=== PATIENT | female | born 1955 | race Caucasian/White ===

== ENCOUNTER → 2016-07-18 | Outpatient (CLI) | payer BC ==
[~2016-07-18] VITALS: Ht 165.1 cm; Wt 110.2 kg
[~2016-07-18] MED LIST: ALBU17IN2 INH; AMLO5TAB2 PO; CALC600T10 PO; ESTR1MIS PV; FLUT1LOT; HUMI40KI SC; LIDOCAINE 2% INJ 100 MG/5 ML SDV (FOR ANES.) As Ordered ONE; METH2.5TA PO; MULT1TAB10 PO; NS 1,000 ML IV SCH; PANT40TA2 PO; PROPOFOL 200 MG/20 ML VIAL As Ordered ONE; VITA200016 PO
--- NOTE | 2016-07-18 07:46 | ROOR ---
Patient Name: Falguni Marlow Procedure Date: 07/18/2016 7:29 AM Date of : 1955 Age: 60 Room: [facility] Gender: Female Note Status: Finalized Procedure: Colonoscopy Indications: High risk colon cancer surveillance: Personal history of colonic polyps, Last colonoscopy: May 2013 Providers: Evan TORRES MD Referring MD: DOMINICK LERMA MD Requesting Provider: Medicines: Monitored Anesthesia Care Complications: No immediate complications. Procedure: Pre-Anesthesia Assessment: - The heart rate, respiratory rate, oxygen saturations, blood pressure, adequacy of pulmonary ventilation, and response to care were monitored throughout the procedure. The Colonoscope was introduced through the anus and advanced to the cecum, identified by appendiceal orifice and ileocecal valve. The colonoscopy was performed without difficulty. The patient tolerated the procedure well. The quality of the bowel preparation was good. Findings: The perianal and digital rectal examinations were normal. (Exam: Complete, Prep: Good or Excellent.) A 4 mm polyp was found in the hepatic flexure. The polyp was sessile. The polyp was removed with a cold snare. Resection and retrieval were complete. The exam was otherwise without abnormality on direct and retroflexion views. Impression: - One 4 mm polyp at the hepatic flexure, removed with a cold snare. Resected and retrieved. - The examination was otherwise normal on direct and retroflexion views. Recommendation: - Repeat colonoscopy in 5 years for surveillance. Evan Torres MD Evan TORRES MD 07/18/2016 7:45:51 AM This report has been signed electronically. Number of Addenda: 0 Note Initiated On: 07/18/2016 7:29 AM Estimated Blood Loss: Estimated blood loss: none.
[2016-07-18 08:20] VITALS: BP 133/61
== END ==
LOC: M OPP 06:41
PROVIDERS: ATTEND Internal Medicine Gastroenterology
DX: Z12.11 Encounter for screening for malignant neoplasm of colon (principal); Z86.010 Personal history of colon polyps; D12.3 Benign neoplasm of transverse colon; I10 Essential (primary) hypertension; K21.9 Gastro-esophageal reflux disease without esophagitis; M19.90 Unspecified osteoarthritis, unspecified site; J45.909 Unspecified asthma, uncomplicated; Z79.899 Other long term (current) drug therapy

== ENCOUNTER → 2016-08-20 | Outpatient (REF) | payer BC ==
[~2016-08-20] MED LIST changes: -LIDOCAINE 2% INJ 100 MG/5 ML SDV (FOR ANES.) As Ordered ONE; -NS 1,000 ML IV SCH; -PROPOFOL 200 MG/20 ML VIAL As Ordered ONE
[2016-08-20 13:10] LABS: ALBUMIN 3.9 GM/DL (3.2-5.2); ALT/SGPT 27 U/L (12-78); AST/SGOT 18 U/L (15-37); CREATININE FOR GFR 0.89 MG/DL (0.55-1.02); GLOMERULAR FILTRATION RATE > 60.0 (>45)
[2016-08-20 13:28] LABS: BASO % 0.6 % (0.0-1.0); EOS # 0.3 K/mm3 (0.0-0.50); LYMPH # 1.8 K/mm3 (1.5-4.5); LYMPH % 24.3 % (24.0-44.0); MEAN CORPUSCULAR HEMOGLOBIN 30.1 pg (27.0-33.0); MEAN CORPUSCULAR HGB CONC 33.1 g/dl (32.0-36.5); MEAN CORPUSCULAR VOLUME 90.9 fl (80.0-96.0); MONO # 0.4 K/mm3 (0.0-0.8); MONO % 5.6 % (0.0-5.0); NEUTROPHILS # 4.2 K/mm3 (1.8-7.7); RED CELL DISTRIBUTION WIDTH 13.5 % (11.5-14.5); WHITE BLOOD COUNT 6.7 K/mm3 (4.0-10.0)
== END ==
LOC: M LABDRAW1 12:20
PROVIDERS: ATTEND Internal Medicine Rheumatology
DX: Z51.81 Encounter for therapeutic drug level monitoring (principal); Z79.899 Other long term (current) drug therapy

== ENCOUNTER → 2016-08-20 | Outpatient (REF) | payer BC ==
[2016-08-20 13:18] LABS: ALBUMIN 3.9 GM/DL (3.2-5.2); ALBUMIN/GLOBULIN RATIO 1.26 (1.00-1.93); ALKALINE PHOSPHATASE 96 U/L (45-117); ALT/SGPT 30 U/L (12-78); ANION GAP 6 MEQ/L (8-16); AST/SGOT 18 U/L (15-37); BILIRUBIN,TOTAL 0.5 MG/DL (0.2-1.0); BLOOD UREA NITROGEN 14 MG/DL (7-18); CALCIUM LEVEL 9.5 MG/DL (8.8-10.2); CARBON DIOXIDE LEVEL 30 MEQ/L (21-32); CHLORIDE LEVEL 105 MEQ/L (98-107); CHOLESTEROL LEVEL 204 MG/DL (<200); CREATININE FOR GFR 0.88 MG/DL (0.55-1.02); GLOMERULAR FILTRATION RATE > 60.0 (>45); GLUCOSE, FASTING 101 MG/DL (80-110); POTASSIUM SERUM 4.4 MEQ/L (3.5-5.1); SODIUM LEVEL 141 MEQ/L (136-145); TRIGLYCERIDES LEVEL 120 MG/DL (<150)
== END ==
LOC: M LABDRAW1 12:21
PROVIDERS: ATTEND Emergency Medicine
DX: I10 Essential (primary) hypertension (principal); E78.2 Mixed hyperlipidemia

== ENCOUNTER → 2017-01-16 | Outpatient (REF) | payer BC ==
[~2017-01-16] MED LIST changes: -CALC600T10 PO; +CALC600T31 PO
[2017-01-16 13:58] LABS: BASO % 0.8 % (0.0-1.0); EOS # 0.3 K/mm3 (0.0-0.50); LYMPH % 26.8 % (24.0-44.0); MEAN CORPUSCULAR HEMOGLOBIN 31.5 pg (27.0-33.0); MEAN CORPUSCULAR HGB CONC 34.4 g/dl (32.0-36.5); MEAN CORPUSCULAR VOLUME 91.4 fl (80.0-96.0); MONO # 0.3 K/mm3 (0.0-0.8); MONO % 4.9 % (0.0-5.0); NEUTROPHILS # 4.1 K/mm3 (1.8-7.7); NEUTROPHILS % 60.5 % (36.0-66.0); RED CELL DISTRIBUTION WIDTH 13.6 % (11.5-14.5); WHITE BLOOD COUNT 6.8 K/mm3 (4.0-10.0)
[2017-01-16 14:35] LABS: ALBUMIN 3.7 GM/DL (3.2-5.2); ALT/SGPT 51 U/L (12-78); AST/SGOT 32 U/L (15-37); CREATININE FOR GFR 0.79 MG/DL (0.55-1.02); GLOMERULAR FILTRATION RATE > 60.0 (>45)
== END ==
LOC: M LABDRAW1 08:01
PROVIDERS: ATTEND Internal Medicine Rheumatology
DX: Z51.81 Encounter for therapeutic drug level monitoring (principal); Z79.899 Other long term (current) drug therapy; M05.79 Rheumatoid arthritis with rheumatoid factor of multiple sites without organ or systems involvement

== ENCOUNTER → 2017-01-16 | Outpatient (REF) | payer BC ==
[2017-01-16 14:34] LABS: ALBUMIN 3.8 GM/DL (3.2-5.2); ALBUMIN/GLOBULIN RATIO 1.15 (1.00-1.93); ALKALINE PHOSPHATASE 91 U/L (45-117); ALT/SGPT 49 U/L (12-78); ANION GAP 8 MEQ/L (8-16); AST/SGOT 33 U/L (15-37); BILIRUBIN,TOTAL 0.5 MG/DL (0.2-1.0); BLOOD UREA NITROGEN 13 MG/DL (7-18); CALCIUM LEVEL 8.9 MG/DL (8.8-10.2); CARBON DIOXIDE LEVEL 29 MEQ/L (21-32); CHLORIDE LEVEL 107 MEQ/L (98-107); CHOLESTEROL LEVEL 196 MG/DL (<200); CREATININE FOR GFR 0.79 MG/DL (0.55-1.02); GLOMERULAR FILTRATION RATE > 60.0 (>45); GLUCOSE, FASTING 91 MG/DL (80-110); POTASSIUM SERUM 4.4 MEQ/L (3.5-5.1); SODIUM LEVEL 144 MEQ/L (136-145); TOTAL PROTEIN 7.1 GM/DL (6.4-8.2); TRIGLYCERIDES LEVEL 149 MG/DL (<150)
== END ==
LOC: M LABDRAW1 08:01
PROVIDERS: ATTEND Emergency Medicine
DX: I10 Essential (primary) hypertension (principal); E78.2 Mixed hyperlipidemia

== ENCOUNTER → 2017-02-25 | Outpatient (CLI) | payer BC ==
--- NOTE | 2017-02-25 11:41 | REPMRS ---
Patient History The patient states she had a clinical breast exam in 03/03 Patient is postmenopausal and has history of other cancer at age 56. Family history of prostate cancer in father at age 50 or over. Took estrogen for 3 years. Taking unspecified hormones for 2 years. Digital Woman Screen Mammo: February 25, 2017 - Exam #: [id number] Bilateral CC and MLO view(s) were taken. Technologist: Shae Negron, Technologist Prior study comparison: December 13, 2015, digital woman screen mammo performed at [facility] [employer] [facility]. November 28, 2014, digital woman screen mammo performed at [facility] [employer] [facility]. November 09, 2013, digital woman screen mammo performed at [facility] [employer] [facility]. FINDINGS: There are scattered fibroglandular densities. There has been no change in the appearance of the mammogram from the prior studies. There is a mild amount of scattered fibroglandular density which is fairly symmetric. There is no interval development of dominant mass, architectural distortion, or clustered microcalcification suggestive of malignancy. ASSESSMENT: BI-RADS/ACR category 1 mammogram. Negative. Recommendation Routine screening mammogram in 1 year (for women over age 40). This mammogram was interpreted with the aid of an FDA-approved computer-aided dectection system. Electronically Signed By: Naun Staples MD 02/25/17 [id number]
== END ==
LOC: M WHC 09:32
PROVIDERS: ATTEND Nurse Practitioner Women's Health
DX: Z12.31 Encounter for screening mammogram for malignant neoplasm of breast (principal)

== ENCOUNTER → 2017-09-07 | Outpatient (REF) | payer BC ==
[2017-09-07 11:04] LABS: ALBUMIN/GLOBULIN RATIO 1.18 (1.00-1.93); ALKALINE PHOSPHATASE 97 U/L (45-117); ALT/SGPT 40 U/L (12-78); ANION GAP 5 MEQ/L (8-16); AST/SGOT 28 U/L (7-37); BILIRUBIN,TOTAL 0.5 MG/DL (0.2-1.0); BLOOD UREA NITROGEN 16 MG/DL (7-18); CALCIUM LEVEL 9.2 MG/DL (8.8-10.2); CARBON DIOXIDE LEVEL 30 MEQ/L (21-32); CHLORIDE LEVEL 106 MEQ/L (98-107); CHOLESTEROL LEVEL 192 MG/DL (<200); CHOLESTEROL RISK RATIO 4.266 (<5); CREATININE FOR GFR 0.88 MG/DL (0.55-1.30); GLOMERULAR FILTRATION RATE > 60.0 (>45); GLUCOSE, FASTING 98 MG/DL (70-100); HDL CHOLESTEROL 45 MG/DL (>40); LDL CHOLESTEROL 121.2 MG/DL (<100); NON-HDL-C 147 MG/DL; POTASSIUM SERUM 4.4 MEQ/L (3.5-5.1); SODIUM LEVEL 141 MEQ/L (136-145); TOTAL PROTEIN 7.4 GM/DL (6.4-8.2); TRIGLYCERIDES LEVEL 129 MG/DL (<150)
== END ==
LOC: M LABDRAW1 08:13
DX: I10 Essential (primary) hypertension (principal); E78.2 Mixed hyperlipidemia
CPT/HCPCS: 80053

== ENCOUNTER → 2017-09-07 | Outpatient (REF) | payer BC ==
[2017-09-07 10:44] LABS: BASO # 0.1 10^3/uL (0.0-0.2); BASO % 0.8 % (0.0-1.0); EOS # 0.7 10^3/uL (0.0-0.50); EOS % 10.1 % (0.0-3.0); HEMATOCRIT 38.9 % (36.0-47.0); HEMOGLOBIN 13.2 g/dl (12.0-15.5); IMMATURE GRANULOCYTE % 0.3 % (0-3.0); LYMPH # 1.8 10^3/uL (1.5-4.5); LYMPH % 28.3 % (24.0-44.0); MEAN CORPUSCULAR HEMOGLOBIN 30.3 pg (27.0-33.0); MEAN CORPUSCULAR HGB CONC 33.9 g/dl (32.0-36.5); MEAN CORPUSCULAR VOLUME 89.2 fl (80.0-96.0); MONO # 0.5 10^3/uL (0.0-0.8); NEUTROPHILS # 3.4 10^3/uL (1.8-7.7); NEUTROPHILS % 53.5 % (36.0-66.0); PLATELET COUNT, AUTOMATED 287 10^3/uL (150-450); RED BLOOD COUNT 4.36 10^6/uL (4.00-5.40); RED CELL DISTRIBUTION WIDTH 13.4 % (11.5-14.5); WHITE BLOOD COUNT 6.4 10^3/uL (4.0-10.0)
[2017-09-07 11:01] LABS: ALT/SGPT 40 U/L (12-78); AST/SGOT 31 U/L (7-37); CREATININE FOR GFR 0.92 MG/DL (0.55-1.30); GLOMERULAR FILTRATION RATE > 60.0 (>45)
[2017-09-07 11:08] LABS: ERYTHROCYTE SEDIMENTATION RATE 24 mm/hr (0-30)
== END ==
LOC: M LABDRAW1 08:11
DX: M05.79 Rheumatoid arthritis with rheumatoid factor of multiple sites without organ or systems involvement (principal); Z79.899 Other long term (current) drug therapy
CPT/HCPCS: 85027

== ENCOUNTER → 2018-01-26 | Outpatient (REF) | payer BC ==
[2018-01-26 11:15] LABS: BASO # 0.1 10^3/uL (0.0-0.2); BASO % 0.9 % (0.0-1.0); EOS # 0.2 10^3/uL (0.0-0.50); EOS % 3.2 % (0.0-3.0); HEMATOCRIT 39.8 % (36.0-47.0); HEMOGLOBIN 13.1 g/dl (12.0-15.5); IMMATURE GRANULOCYTE % 0.3 % (0-3.0); LYMPH % 26.6 % (24.0-44.0); MEAN CORPUSCULAR HGB CONC 32.9 g/dl (32.0-36.5); MEAN CORPUSCULAR VOLUME 91.3 fl (80.0-96.0); MONO # 0.6 10^3/uL (0.0-0.8); NEUTROPHILS # 4.6 10^3/uL (1.8-7.7); PLATELET COUNT, AUTOMATED 288 10^3/uL (150-450); RED BLOOD COUNT 4.36 10^6/uL (4.00-5.40); RED CELL DISTRIBUTION WIDTH 13.5 % (11.5-14.5); WHITE BLOOD COUNT 7.5 10^3/uL (4.0-10.0)
[2018-01-26 11:41] LABS: ALBUMIN 3.7 GM/DL (3.2-5.2); ALT/SGPT 26 U/L (12-78); AST/SGOT 15 U/L (7-37); C REACTIVE PROTEIN QUANTITATIV 0.31 MG/DL (0.00-0.30); CREATININE FOR GFR 0.85 MG/DL (0.55-1.30); GLOMERULAR FILTRATION RATE > 60.0 (>45)
[2018-01-26 11:56] LABS: ERYTHROCYTE SEDIMENTATION RATE 27 mm/hr (0-30)
== END ==
LOC: M LABDRAW1 10:30
DX: Z79.899 Other long term (current) drug therapy (principal); Z51.81 Encounter for therapeutic drug level monitoring
CPT/HCPCS: 84460

== ENCOUNTER → 2018-05-26 | Outpatient (CLI) | payer BC ==
[~2018-05-26] MED LIST changes: -AMLO5TAB2 PO; +AMLO5TAB6 PO; +METH2.5T48 PO; -METH2.5TA PO; -PANT40TA2 PO; +PANT40TA3 PO
--- NOTE | 2018-05-26 12:25 | REPMRS ---
Patient History The patient states she had a clinical breast exam in 06/05 Patient is postmenopausal and has history of other cancer at age 56. Family history of prostate cancer at age 50 or over in father. Took estrogen for 3 years. Taking unspecified hormones for 3 years. Digital Woman Screen Mammo: May 26, 2018 - Exam #: [id number] Bilateral CC and MLO view(s) were taken. Technologist: Shae Negron, Technologist Prior study comparison: February 25, 2017, digital woman screen mammo performed at [facility] [employer] [facility]. December 13, 2015, digital woman screen mammo performed at [facility] [employer] [facility]. November 28, 2014, digital woman screen mammo performed at [facility] [employer] [facility]. FINDINGS: There are scattered fibroglandular densities. There has been no change in the appearance of the mammogram from the prior studies. There is a mild amount of scattered fibroglandular density which is fairly symmetric. There is no interval development of dominant mass, architectural distortion, or clustered microcalcification suggestive of malignancy. 3-D tomosynthesis shows no additional findings. Assessment: BI-RADS/ACR category 1 mammogram. Negative. Recommendation Routine screening mammogram of both breasts in 1 year (for women over age 40). This patient's Lifetime Breast Cancer RIsk is estimated at 5.6 %. This mammogram was interpreted with the aid of an FDA-approved computer-aided dectection system. Electronically Signed By: Naun Staples MD 05/26/18 [id number]
== END ==
LOC: M WHC 08:30
PROVIDERS: ATTEND Nurse Practitioner Women's Health
DX: Z12.31 Encounter for screening mammogram for malignant neoplasm of breast (principal); Z78.0 Asymptomatic menopausal state; Z85.9 Personal history of malignant neoplasm, unspecified; Z79.899 Other long term (current) drug therapy; R92.8 Other abnormal and inconclusive findings on diagnostic imaging of breast

== ENCOUNTER → 2018-05-26 | Outpatient (REF) | payer BC ==
[2018-05-26 12:40] LABS: BASO # 0.1 10^3/uL (0.0-0.2); BASO % 1.1 % (0.0-1.0); EOS # 0.6 10^3/uL (0.0-0.50); EOS % 6.9 % (0.0-3.0); HEMATOCRIT 39.4 % (36.0-47.0); HEMOGLOBIN 13.2 g/dl (12.0-15.5); LYMPH # 1.9 10^3/uL (1.5-4.5); LYMPH % 23.8 % (24.0-44.0); MEAN CORPUSCULAR HEMOGLOBIN 30.4 pg (27.0-33.0); MEAN CORPUSCULAR HGB CONC 33.5 g/dl (32.0-36.5); MEAN CORPUSCULAR VOLUME 90.8 fl (80.0-96.0); MONO # 0.6 10^3/uL (0.0-0.8); MONO % 6.9 % (0.0-5.0); NEUTROPHILS # 4.9 10^3/uL (1.8-7.7); NEUTROPHILS % 61.1 % (36.0-66.0); PLATELET COUNT, AUTOMATED 304 10^3/uL (150-450); RED BLOOD COUNT 4.34 10^6/uL (4.00-5.40); WHITE BLOOD COUNT 8.1 10^3/uL (4.0-10.0)
[2018-05-26 13:00] LABS: ALBUMIN 3.7 GM/DL (3.2-5.2); ALT/SGPT 28 U/L (12-78); CREATININE FOR GFR 0.91 MG/DL (0.55-1.30); GLOMERULAR FILTRATION RATE > 60.0 (>45)
[2018-05-26 13:04] LABS: ERYTHROCYTE SEDIMENTATION RATE 25 mm/hr (0-30)
== END ==
LOC: M LABDRAW1 11:58
PROVIDERS: ATTEND Internal Medicine Rheumatology
DX: M05.79 Rheumatoid arthritis with rheumatoid factor of multiple sites without organ or systems involvement (principal); Z79.899 Other long term (current) drug therapy

== ENCOUNTER → 2018-09-22 | Outpatient (REF) | payer BC ==
[2018-09-22 12:18] LABS: BASO # 0.1 10^3/uL (0.0-0.2); BASO % 0.9 % (0.0-1.0); EOS # 0.3 10^3/uL (0.0-0.50); EOS % 3.5 % (0.0-3.0); HEMATOCRIT 41.9 % (36.0-47.0); HEMOGLOBIN 13.7 g/dl (12.0-15.5); LYMPH # 1.9 10^3/uL (1.5-4.5); LYMPH % 25.7 % (24.0-44.0); MEAN CORPUSCULAR HEMOGLOBIN 30.4 pg (27.0-33.0); MEAN CORPUSCULAR HGB CONC 32.7 g/dl (32.0-36.5); MEAN CORPUSCULAR VOLUME 93.1 fl (80.0-96.0); MONO # 0.6 10^3/uL (0.0-0.8); MONO % 7.4 % (0.0-5.0); NEUTROPHILS # 4.7 10^3/uL (1.8-7.7); NEUTROPHILS % 62.2 % (36.0-66.0); PLATELET COUNT, AUTOMATED 296 10^3/uL (150-450); WHITE BLOOD COUNT 7.5 10^3/uL (4.0-10.0)
[2018-09-22 12:41] LABS: ALBUMIN 4.1 GM/DL (3.2-5.2); ALT/SGPT 28 U/L (12-78); CREATININE FOR GFR 0.85 MG/DL (0.55-1.30); GLOMERULAR FILTRATION RATE > 60.0 (>45)
[2018-09-22 13:17] LABS: ERYTHROCYTE SEDIMENTATION RATE 28 mm/hr (0-30)
== END ==
LOC: M LABDRAW1 11:55
PROVIDERS: ATTEND Internal Medicine Rheumatology
DX: M05.79 Rheumatoid arthritis with rheumatoid factor of multiple sites without organ or systems involvement (principal); M25.511 Pain in right shoulder; Z79.899 Other long term (current) drug therapy

== ENCOUNTER → 2019-01-03 | Outpatient (REF) | payer BC ==
[2019-01-03 14:10] LABS: BASO # 0.1 10^3/uL (0.0-0.2); BASO % 1.3 % (0.0-1.0); EOS # 0.3 10^3/uL (0.0-0.50); EOS % 4.2 % (0.0-3.0); HEMATOCRIT 39.5 % (36.0-47.0); HEMOGLOBIN 12.8 g/dl (12.0-15.5); LYMPH % 25.3 % (24.0-44.0); MEAN CORPUSCULAR HEMOGLOBIN 30.5 pg (27.0-33.0); MEAN CORPUSCULAR HGB CONC 32.4 g/dl (32.0-36.5); MEAN CORPUSCULAR VOLUME 94.3 fl (80.0-96.0); MONO # 0.6 10^3/uL (0.0-0.8); MONO % 7.7 % (0.0-5.0); NEUTROPHILS # 4.8 10^3/uL (1.8-7.7); NEUTROPHILS % 61.1 % (36.0-66.0); PLATELET COUNT, AUTOMATED 275 10^3/uL (150-450); RED BLOOD COUNT 4.19 10^6/uL (4.00-5.40); WHITE BLOOD COUNT 7.8 10^3/uL (4.0-10.0)
[2019-01-03 14:19] LABS: ALBUMIN 3.6 GM/DL (3.2-5.2); ALT/SGPT 44 U/L (12-78); C REACTIVE PROTEIN QUANTITATIV < 0.30 MG/DL (0.00-0.30); CREATININE FOR GFR 0.82 MG/DL (0.55-1.30); GLOMERULAR FILTRATION RATE > 60.0 (>45)
[2019-01-03 14:29] LABS: ERYTHROCYTE SEDIMENTATION RATE 25 mm/hr (0-30)
== END ==
LOC: M LABDRAW1 12:40
PROVIDERS: ATTEND Internal Medicine Rheumatology
DX: Z79.899 Other long term (current) drug therapy (principal); M05.79 Rheumatoid arthritis with rheumatoid factor of multiple sites without organ or systems involvement

== ENCOUNTER → 2019-02-20 | Outpatient (CLI) | payer BC ==
--- NOTE | 2019-02-20 09:04 | REP ---
PA and lateral chest: There are no comparisons. The lung chery are clear. The cardiac size is normal. The mikey, mediastinum, and skeletal structures are unremarkable. Impression: Negative PA and lateral chest. Electronically Signed by Negrito Moy MD 02/20/2019 08:56 A
[2019-02-20 16:41] LABS: BASO # 0.1 10^3/uL (0.0-0.2); BASO % 0.9 % (0.0-1.0); EOS # 0.2 10^3/uL (0.0-0.5); EOS % 2.4 % (0.0-3.0); HEMATOCRIT 41.6 % (36.0-47.0); HEMOGLOBIN 13.6 g/dl (12.0-15.5); LYMPH # 2.4 10^3/uL (1.5-5.0); LYMPH % 25.6 % (24.0-44.0); MEAN CORPUSCULAR HEMOGLOBIN 30.4 pg (27.0-33.0); MEAN CORPUSCULAR HGB CONC 32.7 g/dl (32.0-36.5); MEAN CORPUSCULAR VOLUME 92.9 fl (80.0-96.0); MONO # 0.7 10^3/uL (0.0-0.8); MONO % 7.6 % (0.0-5.0); NEUTROPHILS % 63.4 % (36.0-66.0); PLATELET COUNT, AUTOMATED 309 10^3/uL (150-450); RED BLOOD COUNT 4.48 10^6/uL (4.00-5.40); WHITE BLOOD COUNT 9.5 10^3/uL (4.0-10.0)
[2019-02-20 17:09] LABS: MONO REFLEX EBV COMP NEGATIVE (NEGATIVE)
[2019-02-23 16:25] LABS: EBV AB TO NUCLEAR ANTIGEN >600.0 U/mL (0.0-17.9); EBV VIRAL CAPSID AG IgG >600.0 U/mL (0.0-17.9); EBV VIRAL CAPSID AG IgM <36.0 U/mL (0.0-35.9)
== END ==
LOC: M ADAMS 08:44
PROVIDERS: ATTEND Physician Assistant Medical
DX: J06.9 Acute upper respiratory infection, unspecified (principal)

== ENCOUNTER → 2019-03-21 | Outpatient (REF) | payer BC ==
[2019-03-21 12:31] LABS: BASO # 0.1 10^3/uL (0.0-0.2); BASO % 0.9 % (0.0-1.0); EOS # 0.2 10^3/uL (0.0-0.5); EOS % 2.3 % (0.0-3.0); HEMATOCRIT 40.3 % (36.0-47.0); HEMOGLOBIN 13.3 g/dl (12.0-15.5); LYMPH % 26.2 % (24.0-44.0); MEAN CORPUSCULAR HEMOGLOBIN 30.5 pg (27.0-33.0); MEAN CORPUSCULAR VOLUME 92.4 fl (80.0-96.0); MONO # 0.6 10^3/uL (0.0-0.8); MONO % 7.5 % (0.0-5.0); NEUTROPHILS # 4.7 10^3/uL (1.5-8.5); NEUTROPHILS % 62.7 % (36.0-66.0); PLATELET COUNT, AUTOMATED 289 10^3/uL (150-450); RED BLOOD COUNT 4.36 10^6/uL (4.00-5.40); WHITE BLOOD COUNT 7.5 10^3/uL (4.0-10.0)
[2019-03-21 12:35] LABS: ALBUMIN 3.7 GM/DL (3.2-5.2); ALT/SGPT 33 U/L (12-78); BILIRUBIN,TOTAL 0.5 MG/DL (0.2-1.0); BLOOD UREA NITROGEN 13 MG/DL (7-18); CALCIUM LEVEL 9.1 MG/DL (8.8-10.2); CARBON DIOXIDE LEVEL 29 MEQ/L (21-32); CHLORIDE LEVEL 104 MEQ/L (98-107); CHOLESTEROL LEVEL 202 MG/DL (<200); CHOLESTEROL RISK RATIO 4.391 (<5); GLOMERULAR FILTRATION RATE > 60.0 (>45); GLUCOSE, FASTING 97 MG/DL (70-100); HDL CHOLESTEROL 46 MG/DL (>40); LDL CHOLESTEROL 131 MG/DL (<100); NON-HDL-C 156 MG/DL; POTASSIUM SERUM 4.2 MEQ/L (3.5-5.1); SODIUM LEVEL 142 MEQ/L (136-145); TOTAL PROTEIN 7.1 GM/DL (6.4-8.2); TRIGLYCERIDES LEVEL 124 MG/DL (<150)
== END ==
LOC: M LABDRAW1 11:35
PROVIDERS: ATTEND Physician Assistant
DX: I10 Essential (primary) hypertension (principal); E78.2 Mixed hyperlipidemia; M05.70 Rheumatoid arthritis with rheumatoid factor of unspecified site without organ or systems involvement

== ENCOUNTER → 2019-03-21 | Outpatient (REF) | payer BC ==
[2019-03-21 12:25] LABS: ALBUMIN 3.7 GM/DL (3.2-5.2); ALT/SGPT 30 U/L (12-78); C REACTIVE PROTEIN QUANTITATIV 0.35 MG/DL (0.00-0.30); CREATININE FOR GFR 0.88 MG/DL (0.55-1.30); GLOMERULAR FILTRATION RATE > 60.0 (>45)
[2019-03-21 12:26] LABS: BASO # 0.1 10^3/uL (0.0-0.2); BASO % 1.1 % (0.0-1.0); EOS # 0.2 10^3/uL (0.0-0.5); EOS % 2.2 % (0.0-3.0); HEMATOCRIT 39.6 % (36.0-47.0); HEMOGLOBIN 13.3 g/dl (12.0-15.5); LYMPH % 27.4 % (24.0-44.0); MEAN CORPUSCULAR HEMOGLOBIN 31.1 pg (27.0-33.0); MEAN CORPUSCULAR HGB CONC 33.6 g/dl (32.0-36.5); MEAN CORPUSCULAR VOLUME 92.5 fl (80.0-96.0); MONO # 0.6 10^3/uL (0.0-0.8); MONO % 7.6 % (0.0-5.0); NEUTROPHILS # 4.6 10^3/uL (1.5-8.5); NEUTROPHILS % 61.4 % (36.0-66.0); PLATELET COUNT, AUTOMATED 294 10^3/uL (150-450); RED BLOOD COUNT 4.28 10^6/uL (4.00-5.40); WHITE BLOOD COUNT 7.4 10^3/uL (4.0-10.0)
[2019-03-21 13:18] LABS: ERYTHROCYTE SEDIMENTATION RATE 31 mm/hr (0-30)
== END ==
LOC: M LABDRAW1 11:32
PROVIDERS: ATTEND Internal Medicine Rheumatology
DX: Z79.899 Other long term (current) drug therapy (principal); M05.79 Rheumatoid arthritis with rheumatoid factor of multiple sites without organ or systems involvement

== ENCOUNTER → 2019-05-31 | Outpatient (CLI) | payer BC ==
--- NOTE | 2019-05-31 10:36 | REPMRS ---
Patient History The patient states she had a clinical breast exam in 2019. Family history of prostate cancer at age 50 or over in father. Took estrogen for 3 years. Taking unspecified hormones for 3 years. Digital Woman Screen Mammo: May 31, 2019 - Exam #: [id number] Bilateral CC and MLO view(s) were taken. Technologist: Yani Flores, Technologist Prior study comparison: May 26, 2018, bilateral digital woman screen mammo performed at [facility]. February 25, 2017, digital woman screen mammo performed at [facility]. December 13, 2015, digital woman screen mammo performed at [facility]. FINDINGS: There are scattered fibroglandular densities. There has been no change in the appearance of the mammogram from the prior studies. There is a mild amount of scattered fibroglandular density which is fairly symmetric. There is no interval development of dominant mass, architectural distortion, or grouped microcalcification suggestive of malignancy. 3-D tomosynthesis shows no additional findings. Assessment: BI-RADS/ACR category 1 mammogram. Negative Mammogram. Recommendation Routine screening mammogram of both breasts in 1 year (for women over age 40). This patient's Lifetime Breast Cancer Risk is estimated at 5.4 %. This mammogram was interpreted with the aid of an FDA-approved computer-aided dectection system. Electronically Signed By: Naun Staples MD 05/31/19 [id number]
== END ==
LOC: M WHC 08:22
PROVIDERS: ATTEND Nurse Practitioner Women's Health
DX: Z12.31 Encounter for screening mammogram for malignant neoplasm of breast (principal)

== ENCOUNTER 2019-07-25 03:50 | Emergency (ER) | payer BC ==
[~2019-07-25] VITALS: Ht 165.1 cm; Wt 109.1 kg
[2019-07-25 04:36] LABS: BASO # 0.1 10^3/uL (0.0-0.2); BASO % 0.8 % (0.0-1.0); EOS # 0.4 10^3/uL (0.0-0.5); EOS % 4.6 % (0.0-3.0); HEMATOCRIT 38.8 % (36.0-47.0); LYMPH # 2.3 10^3/uL (1.5-5.0); LYMPH % 26.3 % (24.0-44.0); MEAN CORPUSCULAR HEMOGLOBIN 30.3 pg (27.0-33.0); MEAN CORPUSCULAR HGB CONC 33.5 g/dl (32.0-36.5); MEAN CORPUSCULAR VOLUME 90.4 fl (80.0-96.0); MONO # 0.7 10^3/uL (0.0-0.8); MONO % 7.6 % (0.0-5.0); NEUTROPHILS # 5.3 10^3/uL (1.5-8.5); NEUTROPHILS % 60.5 % (36.0-66.0); PLATELET COUNT, AUTOMATED 262 10^3/uL (150-450); RED BLOOD COUNT 4.29 10^6/uL (4.00-5.40); WHITE BLOOD COUNT 8.7 10^3/uL (4.0-10.0)
[2019-07-25] MEDS ORDERED: GI COCKTAIL 50ML BTL(HYOSCYAMINE/MAALOX/LIDOCAINE VISCOUS)(1:3:1) PO ONE (05:00)
[2019-07-25 05:03] LABS: ALBUMIN 3.9 GM/DL (3.2-5.2); ALT/SGPT 47 U/L (12-78); BILIRUBIN,DIRECT < 0.1 MG/DL (0.0-0.2); BILIRUBIN,TOTAL 0.3 MG/DL (0.2-1.0); LIPASE 290 U/L (73-393)
[2019-07-25] MEDS ORDERED: GASTROGRAFIN SOLUTION 30ML (Q9963) As Ordered ONE (05:20)
[2019-07-25] MEDS: GASTROGRAFIN SOLUTION 30ML PO SCH ×2 (05:59→06:02)
[2019-07-25] MEDS ORDERED: KETOROLAC 30 MG/ML VIAL (J1885) As Ordered ONE (06:28)
[2019-07-25] MEDS ORDERED: KETOROLAC 30 MG/ML VIAL (J1885) IV ONE (06:30)
[2019-07-25] MEDS ORDERED: CIPR500T3 (07:24)
[2019-07-25] MEDS ORDERED: HYDR12.55 (07:24)
[2019-07-25] MEDS ORDERED: ISOVUE-370 76% 100ML VIAL (Q9967) As Ordered ONE (07:37)
--- NOTE | 2019-07-25 08:28 | REPVR ---
PROCEDURE INFORMATION: Exam: CT Abdomen And Pelvis With Contrast Exam date and time: 07/25/2019 4:51 AM Age: 63 years old Clinical indication: Abdominal pain; Additional info: Left upper quadrant pain, early satiety TECHNIQUE: Imaging protocol: Computed tomography of the abdomen and pelvis with intravenous contrast. Delayed images were also obtained. Radiation optimization: All CT scans at this facility use at least one of these dose optimization techniques: automated exposure control; mA and/or kV adjustment per patient size (includes targeted exams where dose is matched to clinical indication); or iterative reconstruction. Contrast material: Isovue 370; Contrast volume: 100 ml; Contrast route: IV; Other contrast: Oral, gastrografin; COMPARISON: No relevant prior studies available. FINDINGS: Mediastinum: A small sliding hiatal hernia is present above the level of the diaphragm. Liver: Left lobe hepatic cyst measuring 2.9 cm. Mild diffuse hypoattenuation of the liver is present consistent with hepatic steatosis. Gallbladder and bile ducts: Normal. No calcified stones. No ductal dilation. Pancreas: Normal. No ductal dilation. Spleen: Normal. No splenomegaly. Adrenals: Normal. No mass. Kidneys and ureters: Small bilateral renal cysts, largest on the right measuring 9 mm. Stomach and bowel: Unremarkable. No obstruction. No mucosal thickening. Appendix: The vermiform appendix is normal. Intraperitoneal space: Unremarkable. No free air. No significant fluid collection. Vasculature: A circumaortic left renal vein is present. Moderate abdominal aortic atherosclerotic calcification without aneurysm. The iliac arteries show mild bilateral atherosclerotic calcifications without evidence of aneurysm. Lymph nodes: No enlarged lymph nodes. Bladder: Unremarkable as visualized. Reproductive: The uterus is status post hysterectomy. The ovaries are not identified. Vaginal ring pessary. Bones/joints: Bilateral lower lumbar facet primary osteoarthritis. L5-S1 spondylosis with bilateral neural foraminal stenosis. Soft tissues: A tiny paraumbilical hernia containing only abdominal fat is noted. IMPRESSION: 1. Hepatic cyst. 2. Fatty infiltration of the liver. 3. Small bilateral renal cysts. 4. Prior hysterectomy. 5. Small hiatal hernia. Electronically signed by: Oneal Tan On 07/25/2019 08:27:52 AM
[2019-07-25 10:38] VITALS: BP 144/65
== END 2019-07-25 10:40 | disposition home or self-care (01) ==
LOC: EDBD 03:50 → EDSEX 03:50 → M ED 03:50
DX: R10.9 Unspecified abdominal pain (principal); I10 Essential (primary) hypertension; Q44.6 Cystic disease of liver; K76.0 Fatty (change of) liver, not elsewhere classified; N28.1 Cyst of kidney, acquired; K44.9 Diaphragmatic hernia without obstruction or gangrene; Z79.899 Other long term (current) drug therapy
CPT/HCPCS: 74177; 80047; 80076; 81001; 83690; 85025; 93041; 96374; 99284; J1885; Q9967

== ENCOUNTER → 2019-11-22 | Outpatient (REF) | payer BC ==
[~2019-11-22] MED LIST changes: +AMLO1TAB24 PO; -AMLO5TAB6 PO; +CIPR500T3; +HYDR12.55; +PANT40TA29 PO; -PANT40TA3 PO
[2019-11-22 14:17] LABS: BASO # 0.1 10^3/uL (0.0-0.2); BASO % 1.1 % (0.0-1.0); EOS # 0.4 10^3/uL (0.0-0.5); EOS % 4.9 % (0.0-3.0); HEMATOCRIT 40.1 % (36.0-47.0); HEMOGLOBIN 13.1 g/dl (12.0-15.5); LYMPH # 2.4 10^3/uL (1.5-5.0); LYMPH % 29.9 % (24.0-44.0); MEAN CORPUSCULAR HEMOGLOBIN 30.8 pg (27.0-33.0); MEAN CORPUSCULAR HGB CONC 32.7 g/dl (32.0-36.5); MEAN CORPUSCULAR VOLUME 94.4 fl (80.0-96.0); MONO # 0.7 10^3/uL (0.0-0.8); MONO % 8.4 % (0.0-5.0); NEUTROPHILS # 4.5 10^3/uL (1.5-8.5); NEUTROPHILS % 55.6 % (36.0-66.0); PLATELET COUNT, AUTOMATED 289 10^3/uL (150-450); RED BLOOD COUNT 4.25 10^6/uL (4.00-5.40)
[2019-11-22 14:28] LABS: ALBUMIN 3.7 GM/DL (3.2-5.2); ALT/SGPT 30 U/L (12-78); C REACTIVE PROTEIN QUANTITATIV 0.31 MG/DL (0.00-0.30); CREATININE FOR GFR 0.86 MG/DL (0.55-1.30); GLOMERULAR FILTRATION RATE > 60.0 (>45)
[2019-11-22 14:35] LABS: ERYTHROCYTE SEDIMENTATION RATE 31 mm/hr (0-30)
== END ==
LOC: M LABDRWAD 12:51
PROVIDERS: ATTEND Internal Medicine Rheumatology
DX: M05.79 Rheumatoid arthritis with rheumatoid factor of multiple sites without organ or systems involvement (principal); Z79.899 Other long term (current) drug therapy

== ENCOUNTER 2019-12-19 07:20 | Day surgery (SDC) | payer BC ==
[~2019-12-19 07:20] MED LIST changes: +LIDOCAINE 2% 100MG/5ML SDV (FOR ANES.) As Ordered ONE; +propofoL 200 MG/20 ML VIAL As Ordered ONE
--- NOTE | 2020-01-25 11:32 | ROOR ---
Patient Name: Falguni Marlow Procedure Date: 12/19/2019 7:33 AM Date of : 1955 Age: 64 Room: [facility] Gender: Female Note Status: Finalized Procedure: Colonoscopy Indications: Generalized abdominal pain, Change in bowel habits Providers: Evan WASHINGTON MD Referring MD: Teresa Buckley PA Requesting Provider: Medicines: Monitored Anesthesia Care Complications: No immediate complications. Procedure: Pre-Anesthesia Assessment: - The heart rate, respiratory rate, oxygen saturations, blood pressure, adequacy of pulmonary ventilation, and response to care were monitored throughout the procedure. The Colonoscope was introduced through the anus and advanced to 10 cm into the ileum. The colonoscopy was performed without difficulty. The patient tolerated the procedure well. The quality of the bowel preparation was good. Findings: The perianal and digital rectal examinations were normal. A diminutive polyp was found in the ascending colon. The polyp was removed with a cold snare. Resection and retrieval were complete. Mild sigmoid diverticulosis and small internal hemorrhoids. The exam was otherwise normal throughout the examined colon. The terminal ileum appeared normal. Impression: - One diminutive polyp in the ascending colon, removed with a cold snare. Resected and retrieved. - Mild sigmoid diverticulosis and small internal hemorrhoids. - The examined portion of the ileum was normal. Recommendation: - Repeat colonoscopy in 5 years for surveillance. - Continue present medications. Evan Washington MD Evan WASHINGTON MD 12/19/2019 8:02:37 AM Number of Addenda: 0 Note Initiated On: 12/19/2019 7:33 AM Estimated Blood Loss: Estimated blood loss: none.
== END 2019-12-19 08:45 | disposition home or self-care (01) ==
LOC: M OPP 07:20
PROVIDERS: ATTEND Internal Medicine Gastroenterology
DX: K64.8 Other hemorrhoids (principal); K57.30 Diverticulosis of large intestine without perforation or abscess without bleeding; D12.2 Benign neoplasm of ascending colon; I10 Essential (primary) hypertension; Z79.899 Other long term (current) drug therapy; Z88.5 Allergy status to narcotic agent

== ENCOUNTER → 2020-04-18 | Outpatient (REF) | payer BC ==
[~2020-04-18] MED LIST changes: -LIDOCAINE 2% 100MG/5ML SDV (FOR ANES.) As Ordered ONE; -propofoL 200 MG/20 ML VIAL As Ordered ONE
[2020-04-19 11:44] LABS: BASO # 0.1 10^3/uL (0.0-0.2); BASO % 0.9 % (0.0-1.0); EOS # 0.3 10^3/uL (0.0-0.5); EOS % 2.5 % (0.0-3.0); HEMOGLOBIN 13.2 g/dl (12.0-15.5); LYMPH # 2.9 10^3/uL (1.5-5.0); MEAN CORPUSCULAR HEMOGLOBIN 29.9 pg (27.0-33.0); MEAN CORPUSCULAR HGB CONC 32.2 g/dl (32.0-36.5); MEAN CORPUSCULAR VOLUME 92.8 fl (80.0-96.0); MONO # 0.7 10^3/uL (0.0-0.8); MONO % 6.8 % (0.0-5.0); NEUTROPHILS # 6.6 10^3/uL (1.5-8.5); NEUTROPHILS % 62.4 % (36.0-66.0); PLATELET COUNT, AUTOMATED 294 10^3/uL (150-450); RED BLOOD COUNT 4.42 10^6/uL (4.00-5.40); WHITE BLOOD COUNT 10.6 10^3/uL (4.0-10.0)
[2020-04-19 12:10] LABS: ERYTHROCYTE SEDIMENTATION RATE 29 mm/hr (0-30)
[2020-04-19 12:17] LABS: CREATININE FOR GFR 0.86 MG/DL (0.55-1.30)
[2020-04-19 12:18] LABS: ALBUMIN 3.9 GM/DL (3.2-5.2); ALT/SGPT 37 U/L (12-78); GLOMERULAR FILTRATION RATE > 60.0 (>45)
== END ==
LOC: M LABDRWAD 10:31
PROVIDERS: ATTEND Internal Medicine Rheumatology
DX: Z79.899 Other long term (current) drug therapy (principal); M05.79 Rheumatoid arthritis with rheumatoid factor of multiple sites without organ or systems involvement

== ENCOUNTER → 2020-08-28 | Outpatient (REF) | payer BC ==
[2020-08-28 12:26] LABS: BASO # 0.1 10^3/uL (0.0-0.2); BASO % 1.4 % (0.0-1.0); EOS # 0.4 10^3/uL (0.0-0.5); EOS % 4.4 % (0.0-3.0); HEMATOCRIT 42.1 % (36.0-47.0); HEMOGLOBIN 13.8 g/dl (12.0-15.5); LYMPH # 2.3 10^3/uL (1.5-5.0); MEAN CORPUSCULAR HEMOGLOBIN 30.3 pg (27.0-33.0); MEAN CORPUSCULAR HGB CONC 32.8 g/dl (32.0-36.5); MEAN CORPUSCULAR VOLUME 92.5 fl (80.0-96.0); MONO # 0.7 10^3/uL (0.0-0.8); MONO % 7.7 % (2.0-8.0); NEUTROPHILS # 5.2 10^3/uL (1.5-8.5); NEUTROPHILS % 60.2 % (36.0-66.0); PLATELET COUNT, AUTOMATED 299 10^3/uL (150-450); RED BLOOD COUNT 4.55 10^6/uL (4.00-5.40); WHITE BLOOD COUNT 8.7 10^3/uL (4.0-10.0)
[2020-08-28 13:27] LABS: ALT/SGPT 37 U/L (12-78); BILIRUBIN,TOTAL 0.5 MG/DL (0.2-1.0); BLOOD UREA NITROGEN 13 MG/DL (7-18); CALCIUM LEVEL 10.1 MG/DL (8.8-10.2); CARBON DIOXIDE LEVEL 30 MEQ/L (21-32); CHLORIDE LEVEL 105 MEQ/L (98-107); CHOLESTEROL LEVEL 212 MG/DL (<200); CHOLESTEROL RISK RATIO 4.818 (<5); CREATININE FOR GFR 0.81 MG/DL (0.55-1.30); GLOMERULAR FILTRATION RATE > 60.0 (>45); GLUCOSE, FASTING 90 MG/DL (70-100); HDL CHOLESTEROL 44 MG/DL (>40); LDL CHOLESTEROL 137 MG/DL (<100); NON-HDL-C 168 MG/DL; POTASSIUM SERUM 4.8 MEQ/L (3.5-5.1); SODIUM LEVEL 139 MEQ/L (136-145); TOTAL 25(OH) VITAMIN D 70.8 NG/ML (30.0-100.0); TOTAL PROTEIN 7.5 GM/DL (6.4-8.2); TRIGLYCERIDES LEVEL 154 MG/DL (<150)
[2020-08-28 14:10] LABS: HEMOGLOBIN A1c 5.2 %
== END ==
LOC: M SFHCADAM 08:08
PROVIDERS: ATTEND Physician Assistant Medical
DX: I10 Essential (primary) hypertension (principal); E66.01 Morbid (severe) obesity due to excess calories; M05.79 Rheumatoid arthritis with rheumatoid factor of multiple sites without organ or systems involvement; E55.9 Vitamin D deficiency, unspecified

== ENCOUNTER → 2020-09-06 | Outpatient (REF) | payer BC ==
[2020-09-06 12:43] LABS: BASO # 0.1 10^3/uL (0.0-0.2); BASO % 1.5 % (0.0-1.0); EOS # 0.2 10^3/uL (0.0-0.5); EOS % 2.5 % (0.0-3.0); HEMATOCRIT 41.2 % (36.0-47.0); HEMOGLOBIN 13.6 g/dl (12.0-15.5); LYMPH # 2.3 10^3/uL (1.5-5.0); LYMPH % 27.4 % (24.0-44.0); MEAN CORPUSCULAR HEMOGLOBIN 30.4 pg (27.0-33.0); MEAN CORPUSCULAR VOLUME 92.2 fl (80.0-96.0); MONO # 0.7 10^3/uL (0.0-0.8); MONO % 8.2 % (2.0-8.0); NEUTROPHILS % 60.2 % (36.0-66.0); PLATELET COUNT, AUTOMATED 306 10^3/uL (150-450); RED BLOOD COUNT 4.47 10^6/uL (4.00-5.40); WHITE BLOOD COUNT 8.3 10^3/uL (4.0-10.0)
[2020-09-06 13:07] LABS: ALBUMIN 3.9 GM/DL (3.2-5.2); ALT/SGPT 35 U/L (12-78); C REACTIVE PROTEIN QUANTITATIV 0.35 MG/DL (0.00-0.30); CREATININE FOR GFR 0.82 MG/DL (0.55-1.30); GLOMERULAR FILTRATION RATE > 60.0 (>45)
[2020-09-06 13:09] LABS: ERYTHROCYTE SEDIMENTATION RATE 31 mm/hr (0-30)
== END ==
LOC: M LABDRWAD 12:19
PROVIDERS: ATTEND Internal Medicine Rheumatology
DX: Z79.899 Other long term (current) drug therapy (principal); M05.79 Rheumatoid arthritis with rheumatoid factor of multiple sites without organ or systems involvement

== ENCOUNTER → 2020-09-12 | Outpatient (CLI) | payer BC ==
--- NOTE | 2020-09-12 11:28 | REPMRS ---
Patient History The patient states she had a clinical breast exam in 08/2020. Patient is postmenopausal and has history of other cancer at age 56. Family history of prostate cancer at age 50 or over in father. Took estrogen for 3 years. Took unspecified hormones for 3 years. Patient states no breast complaints today. Patient has signed MRS History Sheet. Digital Woman Screen Mammo: September 12, 2020 - Exam #: [id number] Bilateral CC and MLO view(s) were taken. Technologist: Marilyn Pagan, Technologist Prior study comparison: May 31, 2019, bilateral digital woman screen mammo performed at [facility]. May 26, 2018, bilateral digital woman screen mammo performed at [facility]. FINDINGS: There are scattered fibroglandular densities. Screening. Digital screening (2D) mammography was performed bilaterally in the CC and MLO projections. Additionally, breast tomosynthesis (3D mammography) was performed bilaterally in the CC and MLO projections. Todays exam was compared to the prior exams(s). By history, the patient has no complaints of a palpable breast abnormality or other significant breast complaints. The breasts are unchanged in size and shape. There are no david-soft tissue densities or spiculated masses. There is no internal architectural distortion.Once again, stable benign appearing calcifications are seen. There are no suspicious david-calcific clusters. Skin thickening or nipple retraction is not present. IMPRESSION: BI-RADS Category 2- Benign Findings(s). There is no evidence of malignant alteration of the breasts. Followup examination recommended in one year. The Volpara volumetric breast density category is B, there are scattered areas of fibroglandular density. This mammogram was read with the assistance of [facility],an FDA approved computer aided detection system for mammography. The lifetime Tyrer-Cuzick score is 5.2 % Negative x-ray reports should not delay surgical consultation if a dominant or clinically suspicious mass is present. Not all breast cancers can be identified by mammography. Therefore, we recommend that you continue to perform regular breast self-examination and physical examination and then promptly contact your physician of any concerns or changes. Adenosis and dense breasts may obscure an underlying neoplasm. Assessment: BI-RADS/ACR category 2 mammogram. Benign Findings. Recommendation Routine screening mammogram of both breasts in 1 year. Electronically Signed By: Monty Toth DO 09/12/20 [id number]
== END ==
LOC: M WHC 09:04
PROVIDERS: ATTEND Nurse Practitioner Women's Health
DX: Z12.31 Encounter for screening mammogram for malignant neoplasm of breast (principal)

== ENCOUNTER → 2020-11-09 | Outpatient (CLI) | payer MEDICARE, BC ==
--- NOTE | 2020-11-09 10:16 | REP ---
INDICATION: PAIN IN SHOULDER. COMPARISON: None. TECHNIQUE: Three views of the shoulder were performed. FINDINGS: There is moderate to severe hypertrophic degenerative change seen involving the acromioclavicular joint. The glenohumeral relationship is within normal limits. There is no evidence of an acute fracture. IMPRESSION: AC joint DJD <Electronically signed by Monty Toth > 11/09/20 [id number]
--- NOTE | 2020-11-09 10:19 | REP ---
INDICATION: ATRAUMATIC PAIN IN RIGHT SHOULDER. COMPARISON: None. TECHNIQUE: Nine views FINDINGS: There is moderate disc space narrowing seen at C4-5 and C5-6 with heavy anterior and posterior osteophytic ridging. More mild disc space narrowing is seen at all other levels. The facet joints are well aligned bilaterally. There is evidence of limitation of flexion an particularly extension radiographically. The intervertebral foramina appear ample bilaterally with the exception of moderate narrowing at C4-5 level bilaterally. Vertebral body height and alignment is within normal limits. The dens cannot be effectively evaluated secondary to the superimposition of osseous structures and/or dentition on all views. IMPRESSION: Chronic changes and exam limitations as described above. There is no history of trauma. Although this plain radiographic evaluation of the cervical spine shows no evidence of a fracture, it should be remembered that CT is much more sensitive than plain radiography of the C-spine in detecting fractures. If this examination was ordered to rule out a fracture then CT of the cervical spine is recommended. <Electronically signed by Monty Toth > 11/09/20 [id number]
== END ==
LOC: M ADAMS 08:48
PROVIDERS: ATTEND Physician Assistant Medical
DX: M25.511 Pain in right shoulder (principal)

== ENCOUNTER → 2020-12-06 | Outpatient (REF) | payer MEDICARE, BC ==
[2020-12-06 12:53] LABS: BASO # 0.1 10^3/uL (0.0-0.2); BASO % 1.3 % (0.0-1.0); EOS # 0.4 10^3/uL (0.0-0.5); HEMATOCRIT 40.9 % (36.0-47.0); HEMOGLOBIN 13.7 g/dl (12.0-15.5); LYMPH # 2.2 10^3/uL (1.5-5.0); LYMPH % 29.1 % (24.0-44.0); MEAN CORPUSCULAR HEMOGLOBIN 31.1 pg (27.0-33.0); MEAN CORPUSCULAR HGB CONC 33.5 g/dl (32.0-36.5); MEAN CORPUSCULAR VOLUME 92.7 fl (80.0-96.0); MONO # 0.6 10^3/uL (0.0-0.8); NEUTROPHILS # 4.2 10^3/uL (1.5-8.5); NEUTROPHILS % 56.5 % (36.0-66.0); PLATELET COUNT, AUTOMATED 289 10^3/uL (150-450); RED BLOOD COUNT 4.41 10^6/uL (4.00-5.40); WHITE BLOOD COUNT 7.4 10^3/uL (4.0-10.0)
[2020-12-06 13:19] LABS: ALBUMIN 3.9 GM/DL (3.2-5.2); ALT/SGPT 48 U/L (12-78); C REACTIVE PROTEIN QUANTITATIV < 0.30 MG/DL (0.00-0.30); CREATININE FOR GFR 0.93 MG/DL (0.55-1.30); GLOMERULAR FILTRATION RATE > 60.0 (>45)
[2020-12-06 13:20] LABS: ERYTHROCYTE SEDIMENTATION RATE 22 mm/hr (0-30)
== END ==
LOC: M LABDRWAD 12:34
PROVIDERS: ATTEND Internal Medicine Rheumatology
DX: Z79.899 Other long term (current) drug therapy (principal)

== ENCOUNTER → 2021-04-09 | Outpatient (REF) | payer MEDICARE, BC ==
[2021-04-09 17:14] LABS: BASO # 0.1 10^3/uL (0.0-0.2); BASO % 1.1 % (0.0-1.0); EOS # 0.5 10^3/uL (0.0-0.5); EOS % 5.9 % (0.0-3.0); HEMATOCRIT 39.6 % (36.0-47.0); HEMOGLOBIN 13.1 g/dl (12.0-15.5); LYMPH # 2.5 10^3/uL (1.5-5.0); LYMPH % 28.8 % (24.0-44.0); MEAN CORPUSCULAR HEMOGLOBIN 30.6 pg (27.0-33.0); MEAN CORPUSCULAR HGB CONC 33.1 g/dl (32.0-36.5); MEAN CORPUSCULAR VOLUME 92.5 fl (80.0-96.0); MONO # 0.7 10^3/uL (0.0-0.8); MONO % 7.6 % (2.0-8.0); NEUTROPHILS % 56.4 % (36.0-66.0); PLATELET COUNT, AUTOMATED 301 10^3/uL (150-450); RED BLOOD COUNT 4.28 10^6/uL (4.00-5.40); WHITE BLOOD COUNT 8.8 10^3/uL (4.0-10.0)
[2021-04-09 17:49] LABS: ALBUMIN 3.8 GM/DL (3.2-5.2); ALT/SGPT 34 U/L (12-78); C REACTIVE PROTEIN QUANTITATIV < 0.30 MG/DL (0.00-0.30); CREATININE FOR GFR 0.89 MG/DL (0.55-1.30); GLOMERULAR FILTRATION RATE > 60.0 (>45)
[2021-04-09 18:02] LABS: ERYTHROCYTE SEDIMENTATION RATE 24 mm/hr (0-30)
== END ==
LOC: M LABDRWAD 16:28
PROVIDERS: ATTEND Internal Medicine Rheumatology
DX: Z79.899 Other long term (current) drug therapy (principal)

== ENCOUNTER → 2021-09-02 | Outpatient (REF) | payer MEDICARE, BC ==
[2021-09-02 14:08] LABS: BASO # 0.1 10^3/uL (0.0-0.2); EOS # 0.6 10^3/uL (0.0-0.5); EOS % 7.2 % (0.0-3.0); HEMATOCRIT 38.7 % (36.0-47.0); LYMPH % 25.2 % (24.0-44.0); MEAN CORPUSCULAR HEMOGLOBIN 31.3 pg (27.0-33.0); MEAN CORPUSCULAR HGB CONC 33.6 g/dl (32.0-36.5); MONO # 0.5 10^3/uL (0.0-0.8); MONO % 6.8 % (2.0-8.0); NEUTROPHILS # 4.6 10^3/uL (1.5-8.5); NEUTROPHILS % 59.5 % (36.0-66.0); PLATELET COUNT, AUTOMATED 281 10^3/uL (150-450); RED BLOOD COUNT 4.16 10^6/uL (4.00-5.40); WHITE BLOOD COUNT 7.8 10^3/uL (4.0-10.0)
[2021-09-02 14:34] LABS: ERYTHROCYTE SEDIMENTATION RATE 19 mm/hr (0-30)
[2021-09-02 14:35] LABS: ALT/SGPT 86 U/L (12-78); C REACTIVE PROTEIN QUANTITATIV < 0.30 MG/DL (0.00-0.30); CREATININE FOR GFR 0.88 MG/DL (0.55-1.30); GLOMERULAR FILTRATION RATE > 60.0 (>45)
== END ==
LOC: M LABDRWAD 13:26
PROVIDERS: ATTEND Internal Medicine Rheumatology
DX: M05.79 Rheumatoid arthritis with rheumatoid factor of multiple sites without organ or systems involvement (principal); Z79.899 Other long term (current) drug therapy

== ENCOUNTER → 2021-09-02 | Outpatient (REF) | payer MEDICARE, BC ==
[2021-09-02 14:00] LABS: BASO # 0.1 10^3/uL (0.0-0.2); BASO % 1.2 % (0.0-1.0); EOS # 0.6 10^3/uL (0.0-0.5); EOS % 7.5 % (0.0-3.0); HEMATOCRIT 38.2 % (36.0-47.0); HEMOGLOBIN 12.9 g/dl (12.0-15.5); LYMPH # 2.1 10^3/uL (1.5-5.0); LYMPH % 26.8 % (24.0-44.0); MEAN CORPUSCULAR HEMOGLOBIN 31.5 pg (27.0-33.0); MEAN CORPUSCULAR HGB CONC 33.8 g/dl (32.0-36.5); MEAN CORPUSCULAR VOLUME 93.2 fl (80.0-96.0); MONO # 0.5 10^3/uL (0.0-0.8); MONO % 6.7 % (2.0-8.0); NEUTROPHILS # 4.5 10^3/uL (1.5-8.5); NEUTROPHILS % 57.5 % (36.0-66.0); PLATELET COUNT, AUTOMATED 279 10^3/uL (150-450); WHITE BLOOD COUNT 7.7 10^3/uL (4.0-10.0)
[2021-09-02 14:47] LABS: ALBUMIN 3.9 GM/DL (3.2-5.2); ALT/SGPT 85 U/L (12-78); BILIRUBIN,TOTAL 0.6 MG/DL (0.2-1.0); BLOOD UREA NITROGEN 13 MG/DL (7-18); CALCIUM LEVEL 9.6 MG/DL (8.8-10.2); CARBON DIOXIDE LEVEL 31 MEQ/L (21-32); CHLORIDE LEVEL 107 MEQ/L (98-107); CHOLESTEROL LEVEL 123 MG/DL (<200); CHOLESTEROL RISK RATIO 2.617 (<5); GLOMERULAR FILTRATION RATE > 60.0 (>45); GLUCOSE, FASTING 84 MG/DL (70-100); HDL CHOLESTEROL 47 MG/DL (>40); LDL CHOLESTEROL 49 MG/DL (<100); NON-HDL-C 76 MG/DL; POTASSIUM SERUM 4.6 MEQ/L (3.5-5.1); SODIUM LEVEL 142 MEQ/L (136-145); TOTAL 25(OH) VITAMIN D 50.8 NG/ML (30.0-100.0); TOTAL PROTEIN 7.1 GM/DL (6.4-8.2); TRIGLYCERIDES LEVEL 134 MG/DL (<150)
== END ==
LOC: M SFHCADAM 08:07
PROVIDERS: ATTEND Physician Assistant Medical
DX: I10 Essential (primary) hypertension (principal); E66.01 Morbid (severe) obesity due to excess calories; M05.79 Rheumatoid arthritis with rheumatoid factor of multiple sites without organ or systems involvement; E55.9 Vitamin D deficiency, unspecified; Z79.899 Other long term (current) drug therapy

== ENCOUNTER → 2021-11-20 | Outpatient (CLI) | payer MEDICARE, BC ==
[2021-11-20 12:38] LABS: BASO # 0.1 10^3/uL (0.0-0.2); EOS # 0.4 10^3/uL (0.0-0.5); EOS % 4.6 % (0.0-3.0); HEMATOCRIT 38.4 % (36.0-47.0); HEMOGLOBIN 12.7 g/dl (12.0-15.5); LYMPH % 24.9 % (24.0-44.0); MEAN CORPUSCULAR HEMOGLOBIN 31.8 pg (27.0-33.0); MEAN CORPUSCULAR HGB CONC 33.1 g/dl (32.0-36.5); MONO # 0.7 10^3/uL (0.0-0.8); MONO % 9.3 % (2.0-8.0); NEUTROPHILS # 4.7 10^3/uL (1.5-8.5); NEUTROPHILS % 59.8 % (36.0-66.0); PLATELET COUNT, AUTOMATED 259 10^3/uL (150-450); WHITE BLOOD COUNT 7.9 10^3/uL (4.0-10.0)
[2021-11-20 13:01] LABS: ERYTHROCYTE SEDIMENTATION RATE 28 mm/hr (0-30)
[2021-11-20 13:08] LABS: ALBUMIN 4.1 GM/DL (3.2-5.2); ALT/SGPT 76 U/L (12-78); C REACTIVE PROTEIN QUANTITATIV < 0.30 MG/DL (0.00-0.30); CREATININE FOR GFR 1.04 MG/DL (0.55-1.30); GLOMERULAR FILTRATION RATE 56.4 (>45)
== END ==
LOC: M ADAMS 08:28
PROVIDERS: ATTEND Internal Medicine Rheumatology
DX: M05.79 Rheumatoid arthritis with rheumatoid factor of multiple sites without organ or systems involvement (principal); Z79.899 Other long term (current) drug therapy

== ENCOUNTER → 2022-02-10 | Outpatient (CLI) | payer MEDICARE, BC ==
[2022-02-10 13:50] LABS: BASO # 0.1 10^3/uL (0.0-0.2); BASO % 1.3 % (0.0-1.0); EOS # 0.5 10^3/uL (0.0-0.5); EOS % 6.4 % (0.0-3.0); HEMATOCRIT 39.4 % (36.0-47.0); LYMPH # 1.7 10^3/uL (1.5-5.0); LYMPH % 24.5 % (24.0-44.0); MEAN CORPUSCULAR HEMOGLOBIN 31.1 pg (27.0-33.0); MEAN CORPUSCULAR VOLUME 94.3 fl (80.0-96.0); MONO # 0.6 10^3/uL (0.0-0.8); MONO % 9.2 % (2.0-8.0); NEUTROPHILS # 4.1 10^3/uL (1.5-8.5); NEUTROPHILS % 58.3 % (36.0-66.0); PLATELET COUNT, AUTOMATED 284 10^3/uL (150-450); RED BLOOD COUNT 4.18 10^6/uL (4.00-5.40)
[2022-02-10 14:30] LABS: ERYTHROCYTE SEDIMENTATION RATE 34 mm/hr (0-30)
[2022-02-10 14:50] LABS: ALBUMIN 3.8 GM/DL (3.2-5.2); ALT/SGPT 65 U/L (12-78); C REACTIVE PROTEIN QUANTITATIV < 0.30 MG/DL (0.00-0.30); CREATININE FOR GFR 1.15 MG/DL (0.55-1.30); GLOMERULAR FILTRATION RATE 50.3 (>45)
== END ==
LOC: M ADAMS 08:22
PROVIDERS: ATTEND Internal Medicine Rheumatology
DX: M05.79 Rheumatoid arthritis with rheumatoid factor of multiple sites without organ or systems involvement (principal); Z79.899 Other long term (current) drug therapy

== ENCOUNTER → 2022-02-10 | Outpatient (REF) | payer MEDICARE, BC ==
[2022-02-10 14:51] LABS: ALBUMIN 3.8 GM/DL (3.2-5.2); BILIRUBIN,TOTAL 0.5 MG/DL (0.2-1.0); CALCIUM LEVEL 9.5 MG/DL (8.8-10.2); CHOLESTEROL RISK RATIO 2.618 (<5); CREATININE FOR GFR 1.1 MG/DL (0.55-1.30); GLOMERULAR FILTRATION RATE 52.9 (>45); POTASSIUM SERUM 4.7 MEQ/L (3.5-5.1); THYROID STIMULATING HORMONE 1.66 uIU/ML (0.358-3.740); TOTAL PROTEIN 7.4 GM/DL (6.4-8.2)
[2022-02-10 15:51] LABS: TOTAL 25(OH) VITAMIN D 74.1 NG/ML (30.0-100.0)
[2022-02-10 16:21] LABS: HEMOGLOBIN A1c 5.3 %
== END ==
LOC: M SFHCADAM 08:17
PROVIDERS: ATTEND Physician Assistant Medical
DX: I10 Essential (primary) hypertension (principal); E66.01 Morbid (severe) obesity due to excess calories; E55.9 Vitamin D deficiency, unspecified; K76.0 Fatty (change of) liver, not elsewhere classified

== ENCOUNTER → 2022-02-13 | Outpatient (CLI) | payer MEDICARE, BC | LOC: M WHC 08:37 | PROVIDERS: ATTEND Nurse Practitioner Family | DX: Z12.31 Encounter for screening mammogram for malignant neoplasm of breast (principal) ==

== ENCOUNTER → 2022-10-07 | Outpatient (REF) | payer MEDICARE, BC ==
[2022-10-07 14:23] LABS: BASO # 0.1 10^3/uL (0.0-0.2); BASO % 1.3 % (0.0-1.0); EOS # 0.4 10^3/uL (0.0-0.5); EOS % 5.8 % (0.0-3.0); HEMATOCRIT 39.2 % (36.0-47.0); HEMOGLOBIN 12.8 g/dl (12.0-15.5); LYMPH # 1.8 10^3/uL (1.5-5.0); LYMPH % 26.7 % (24.0-44.0); MEAN CORPUSCULAR HEMOGLOBIN 30.6 pg (27.0-33.0); MEAN CORPUSCULAR HGB CONC 32.7 g/dl (32.0-36.5); MEAN CORPUSCULAR VOLUME 93.8 fl (80.0-96.0); MONO # 0.6 10^3/uL (0.0-0.8); MONO % 8.4 % (2.0-8.0); NEUTROPHILS % 57.5 % (36.0-66.0); PLATELET COUNT, AUTOMATED 240 10^3/uL (150-450); RED BLOOD COUNT 4.18 10^6/uL (4.00-5.40); WHITE BLOOD COUNT 6.9 10^3/uL (4.0-10.0)
[2022-10-07 14:45] LABS: ALBUMIN 3.8 G/DL (3.2-5.2); ALKALINE PHOSPHATASE 90 U/L (46-116); ALT/SGPT 30 U/L (7.0-40); AST/SGOT 27 U/L (<34); BILIRUBIN,TOTAL 0.5 MG/DL (0.3-1.2); BLOOD UREA NITROGEN 22 MG/DL (9-23); CALCIUM LEVEL 9.7 MG/DL (8.3-10.6); CARBON DIOXIDE LEVEL 28 MMOL/L (20-31); CHLORIDE LEVEL 106 MMOL/L (98-107); CHOLESTEROL LEVEL 194 MG/DL (<200); CHOLESTEROL RISK RATIO 4.27 (<5); CREATININE FOR GFR 0.97 MG/DL (0.55-1.30); GLOMERULAR FILTRATION RATE > 60.0 (>45); GLUCOSE, FASTING 84 MG/DL (74-106); HDL CHOLESTEROL 45.4 MG/DL (>40); LDL CHOLESTEROL 117.4 MG/DL (<100); NON-HDL-C 148.6 MG/DL; POTASSIUM SERUM 4.3 MMOL/L (3.5-5.1); SODIUM LEVEL 137 MMOL/L (136-145); TOTAL PROTEIN 6.9 G/DL (5.7-8.2); TRIGLYCERIDES LEVEL 156 MG/DL (<150)
[2022-10-07 14:47] LABS: THYROID STIMULATING HORMONE 2.904 uIU/ML (0.55-4.78); TOTAL 25(OH) VITAMIN D 53.1 NG/ML (20.0-100.0)
== END ==
LOC: M SFHCADAM 07:20
PROVIDERS: ATTEND Physician Assistant Medical
DX: I10 Essential (primary) hypertension (principal); E66.01 Morbid (severe) obesity due to excess calories; K76.0 Fatty (change of) liver, not elsewhere classified; E55.9 Vitamin D deficiency, unspecified; E78.2 Mixed hyperlipidemia

== ENCOUNTER → 2022-10-07 | Outpatient (CLI) | payer MEDICARE, BC ==
[2022-10-07 14:21] LABS: C REACTIVE PROTEIN QUANTITATIV < 0.40 MG/DL (<1.0)
[2022-10-07 14:22] LABS: ALBUMIN 3.7 G/DL (3.2-5.2); ALT/SGPT 29 U/L (7.0-40); AST/SGOT 27 U/L (<34); CREATININE FOR GFR 0.98 MG/DL (0.55-1.30); GLOMERULAR FILTRATION RATE > 60.0 (>45)
[2022-10-07 14:57] LABS: ERYTHROCYTE SEDIMENTATION RATE 35 mm/hr (0-30)
[2022-10-07 15:00] LABS: BASO # 0.1 10^3/uL (0.0-0.2); BASO % 1.4 % (0.0-1.0); EOS # 0.4 10^3/uL (0.0-0.5); EOS % 5.1 % (0.0-3.0); HEMOGLOBIN 12.8 g/dl (12.0-15.5); LYMPH # 1.9 10^3/uL (1.5-5.0); LYMPH % 27.3 % (24.0-44.0); MEAN CORPUSCULAR HEMOGLOBIN 31.1 pg (27.0-33.0); MEAN CORPUSCULAR HGB CONC 33.7 g/dl (32.0-36.5); MEAN CORPUSCULAR VOLUME 92.5 fl (80.0-96.0); MONO # 0.6 10^3/uL (0.0-0.8); MONO % 8.2 % (2.0-8.0); NEUTROPHILS # 4.1 10^3/uL (1.5-8.5); NEUTROPHILS % 57.9 % (36.0-66.0); PLATELET COUNT, AUTOMATED 229 10^3/uL (150-450); RED BLOOD COUNT 4.11 10^6/uL (4.00-5.40)
== END ==
LOC: M LABDRWAD 07:22
PROVIDERS: ATTEND Internal Medicine Rheumatology
DX: Z79.899 Other long term (current) drug therapy (principal)

== ENCOUNTER → 2023-02-18 | Outpatient (REF) | payer MEDICARE, BC ==
[~2023-02-18] MED LIST changes: -ESTR1MIS PV; +ESTR1VAG3 PV
[2023-02-18 12:54] LABS: BASO # 0.1 10^3/uL (0.0-0.2); BASO % 1.5 % (0.0-1.0); EOS # 0.7 10^3/uL (0.0-0.5); EOS % 10.7 % (0.0-3.0); HEMATOCRIT 39.2 % (36.0-47.0); HEMOGLOBIN 12.8 g/dl (12.0-15.5); LYMPH # 1.8 10^3/uL (1.5-5.0); LYMPH % 27.5 % (24.0-44.0); MEAN CORPUSCULAR HEMOGLOBIN 30.3 pg (27.0-33.0); MEAN CORPUSCULAR HGB CONC 32.7 g/dl (32.0-36.5); MEAN CORPUSCULAR VOLUME 92.9 fl (80.0-96.0); MONO # 0.8 10^3/uL (0.0-0.8); MONO % 11.5 % (2.0-8.0); NEUTROPHILS # 3.2 10^3/uL (1.5-8.5); NEUTROPHILS % 48.6 % (36.0-66.0); PLATELET COUNT, AUTOMATED 244 10^3/uL (150-450); RED BLOOD COUNT 4.22 10^6/uL (4.00-5.40); WHITE BLOOD COUNT 6.5 10^3/uL (4.0-10.0)
[2023-02-18 13:05] LABS: ERYTHROCYTE SEDIMENTATION RATE 35 mm/hr (0-30)
[2023-02-18 13:17] LABS: C REACTIVE PROTEIN QUANTITATIV < 0.40 MG/DL (<1.0)
[2023-02-18 13:18] LABS: ALBUMIN 3.7 G/DL (3.2-5.2); ALT/SGPT 37 U/L (7.0-40); AST/SGOT 22 U/L (<34); CREATININE FOR GFR 0.95 MG/DL (0.55-1.30); GLOMERULAR FILTRATION RATE > 60.0 (>45)
== END ==
LOC: M LABDRWAD 12:06
PROVIDERS: ATTEND Internal Medicine Rheumatology
DX: M05.79 Rheumatoid arthritis with rheumatoid factor of multiple sites without organ or systems involvement (principal); Z79.899 Other long term (current) drug therapy

== ENCOUNTER → 2023-09-30 | Outpatient (CLI) | payer MEDICARE, BC | LOC: M WHC 08:00 | PROVIDERS: ATTEND Nurse Practitioner Family | DX: Z12.31 Encounter for screening mammogram for malignant neoplasm of breast (principal) ==

== ENCOUNTER → 2023-10-01 | Outpatient (REF) | payer MEDICARE, BC ==
[2023-10-01 14:25] LABS: BASO # 0.1 10^3/uL (0.0-0.2); BASO % 1.4 % (0.0-1.0); EOS # 0.5 10^3/uL (0.0-0.5); EOS % 7.1 % (0.0-3.0); HEMATOCRIT 38.3 % (36.0-47.0); HEMOGLOBIN 12.9 g/dl (12.0-15.5); LYMPH # 1.5 10^3/uL (1.5-5.0); LYMPH % 20.2 % (24.0-44.0); MEAN CORPUSCULAR HGB CONC 33.7 g/dl (32.0-36.5); MONO # 0.9 10^3/uL (0.0-0.8); MONO % 11.8 % (2.0-8.0); NEUTROPHILS # 4.3 10^3/uL (1.5-8.5); NEUTROPHILS % 59.1 % (36.0-66.0); PLATELET COUNT, AUTOMATED 259 10^3/uL (150-450); RED BLOOD COUNT 4.03 10^6/uL (4.00-5.40); WHITE BLOOD COUNT 7.3 10^3/uL (4.0-10.0)
[2023-10-01 14:33] LABS: ERYTHROCYTE SEDIMENTATION RATE 26 mm/hr (0-30)
[2023-10-01 14:47] LABS: C REACTIVE PROTEIN QUANTITATIV < 0.40 MG/DL (<1.0)
[2023-10-01 14:49] LABS: ALBUMIN 3.5 G/DL (3.2-5.2); ALT/SGPT 24 U/L (7.0-40); AST/SGOT 22 U/L (<34); GLOMERULAR FILTRATION RATE > 60.0 (>45)
== END ==
LOC: M LABDRWAD 13:41
PROVIDERS: ATTEND Internal Medicine Rheumatology
DX: Z79.899 Other long term (current) drug therapy (principal)

== ENCOUNTER → 2023-10-01 | Outpatient (REF) | payer MEDICARE, BC ==
[2023-10-01 14:48] LABS: ALBUMIN 3.6 G/DL (3.2-5.2); ALKALINE PHOSPHATASE 85 U/L (46-116); ALT/SGPT 22 U/L (7.0-40); AST/SGOT 21 U/L (<34); BILIRUBIN,TOTAL 0.5 MG/DL (0.3-1.2); BLOOD UREA NITROGEN 21 MG/DL (9-23); CALCIUM LEVEL 9.7 MG/DL (8.3-10.6); CARBON DIOXIDE LEVEL 29 MMOL/L (20-31); CHLORIDE LEVEL 106 MMOL/L (98-107); CHOLESTEROL LEVEL 195 MG/DL (<200); CHOLESTEROL RISK RATIO 3.55 (<5); CREATININE FOR GFR 0.91 MG/DL (0.55-1.30); GLOMERULAR FILTRATION RATE > 60.0 (>45); GLUCOSE, FASTING 90 MG/DL (74-106); HDL CHOLESTEROL 54.9 MG/DL (>40); LDL CHOLESTEROL 121.1 MG/DL (<100); NON-HDL-C 140.1 MG/DL; POTASSIUM SERUM 4.8 MMOL/L (3.5-5.1); SODIUM LEVEL 140 MMOL/L (136-145); TOTAL PROTEIN 6.7 G/DL (5.7-8.2); TRIGLYCERIDES LEVEL 95 MG/DL (<150)
[2023-10-01 14:52] LABS: THYROID STIMULATING HORMONE 2.588 uIU/ML (0.55-4.78)
[2023-10-01 14:53] LABS: TOTAL 25(OH) VITAMIN D 67.1 NG/ML (20.0-100.0)
[2023-10-01 15:14] LABS: CREATININE, URINE 50.6 MG/DL
[2023-10-01 15:15] LABS: MALB URINE SIEMENS < 3.0 MG/L; MAU/CREAT RATIO 5.9 MCG/MG (0.0-30.0)
== END ==
LOC: M SFHCADAM 07:59
PROVIDERS: ATTEND Physician Assistant Medical
DX: I10 Essential (primary) hypertension (principal); E55.9 Vitamin D deficiency, unspecified; E78.2 Mixed hyperlipidemia

== ENCOUNTER → 2024-09-29 | Outpatient (REF) | payer MEDICARE, BC ==
[2024-09-29 14:20] LABS: BASO # 0.1 10^3/uL (0.0-0.2); BASO % 1.3 % (0.0-1.0); EOS # 0.6 10^3/uL (0.0-0.5); EOS % 9.5 % (0.0-3.0); HEMATOCRIT 39.2 % (36.0-47.0); HEMOGLOBIN 12.8 g/dl (12.0-15.5); LYMPH # 1.8 10^3/uL (1.5-5.0); LYMPH % 26.7 % (24.0-44.0); MEAN CORPUSCULAR HEMOGLOBIN 30.5 pg (27.0-33.0); MEAN CORPUSCULAR HGB CONC 32.7 g/dl (32.0-36.5); MEAN CORPUSCULAR VOLUME 93.6 fl (80.0-96.0); MONO # 0.7 10^3/uL (0.0-0.8); MONO % 10.4 % (2.0-8.0); NEUTROPHILS # 3.5 10^3/uL (1.5-8.5); PLATELET COUNT, AUTOMATED 235 10^3/uL (150-450); RED BLOOD COUNT 4.19 10^6/uL (4.00-5.40); WHITE BLOOD COUNT 6.7 10^3/uL (4.0-10.0)
[2024-09-29 14:26] LABS: ALBUMIN 3.7 G/DL (3.2-5.2); BILIRUBIN,TOTAL 0.5 MG/DL (0.3-1.2); CALCIUM LEVEL 9.7 MG/DL (8.3-10.6); CHOLESTEROL RISK RATIO 3.61 (<5); CREATININE FOR GFR 0.92 MG/DL (0.55-1.30); GLOMERULAR FILTRATION RATE 67.8 (>45); HDL CHOLESTEROL 53.4 MG/DL (>40); LDL CHOLESTEROL 117.6 MG/DL (<100); NON-HDL-C 139.6 MG/DL
[2024-09-29 14:27] LABS: THYROID STIMULATING HORMONE 2.376 uIU/ML (0.55-4.78); TOTAL 25(OH) VITAMIN D 83.8 NG/ML (20.0-100.0)
== END ==
LOC: M SFHCADAM 07:54
PROVIDERS: ATTEND Physician Assistant Medical
DX: I10 Essential (primary) hypertension (principal); E66.01 Morbid (severe) obesity due to excess calories; M05.79 Rheumatoid arthritis with rheumatoid factor of multiple sites without organ or systems involvement; E55.9 Vitamin D deficiency, unspecified; K76.0 Fatty (change of) liver, not elsewhere classified; E78.2 Mixed hyperlipidemia

== ENCOUNTER → 2024-10-03 | Outpatient (REF) | payer MEDICARE, BC ==
[2024-10-03 14:20] LABS: ALBUMIN 3.9 G/DL (3.2-5.2); ALT/SGPT 41 U/L (7.0-40); AST/SGOT 36 U/L (<34); C REACTIVE PROTEIN QUANTITATIV < 0.50 MG/DL (<1.0); CREATININE FOR GFR 0.88 MG/DL (0.55-1.30); GLOMERULAR FILTRATION RATE 71.5 (>45)
[2024-10-03 14:22] LABS: BASO # 0.1 10^3/uL (0.0-0.2); BASO % 1.5 % (0.0-1.0); EOS # 0.5 10^3/uL (0.0-0.5); EOS % 6.1 % (0.0-3.0); HEMATOCRIT 39.9 % (36.0-47.0); HEMOGLOBIN 13.2 g/dl (12.0-15.5); LYMPH # 1.9 10^3/uL (1.5-5.0); MEAN CORPUSCULAR HEMOGLOBIN 30.8 pg (27.0-33.0); MEAN CORPUSCULAR HGB CONC 33.1 g/dl (32.0-36.5); MEAN CORPUSCULAR VOLUME 93.2 fl (80.0-96.0); MONO # 0.6 10^3/uL (0.0-0.8); MONO % 7.8 % (2.0-8.0); NEUTROPHILS # 4.3 10^3/uL (1.5-8.5); NEUTROPHILS % 58.5 % (36.0-66.0); PLATELET COUNT, AUTOMATED 269 10^3/uL (150-450); RED BLOOD COUNT 4.28 10^6/uL (4.00-5.40); WHITE BLOOD COUNT 7.3 10^3/uL (4.0-10.0)
[2024-10-03 14:33] LABS: ERYTHROCYTE SEDIMENTATION RATE 32 mm/hr (0-30)
== END ==
LOC: M LABDRWAD 12:54
PROVIDERS: ATTEND Internal Medicine Rheumatology
DX: M05.79 Rheumatoid arthritis with rheumatoid factor of multiple sites without organ or systems involvement (principal); Z79.899 Other long term (current) drug therapy

== ENCOUNTER → 2024-10-05 | Outpatient (CLI) | payer MEDICARE, BC | LOC: M WHC 08:41 | PROVIDERS: ATTEND Obstetrics & Gynecology | DX: Z12.31 Encounter for screening mammogram for malignant neoplasm of breast (principal); R92.313 Mammographic fatty tissue density, bilateral breasts ==